=== PATIENT | female | born 1945 | race Caucasian/White ===

== ENCOUNTER 2023-05-09 08:04 | Outpatient (CLI) | payer MEDICARE, SELFPAY ==
--- NOTE | 2023-05-10 09:46 | WPDSIXMINUTE ---
Six Minute Walk Procedure Procedure Performed Pulmonary Stress Test (6 min walk) Six Minute Walk Six Minute Walk: This is a 6 minute walk test. The test was performed and interpreted in accordance with the 2014 ERS/ATS task force guidelines. Findings: The patient's resting room air oxygen saturation measured by pulse oximetry was 96% and heart rate was 73 bpm. Patient ambulated for 366 meters and oxygen saturation remained 93 to 97%. Heart rate at the end of the study was 98 bpm. The patient did not qualify for supplemental oxygen at rest or with ambulation. There are no prior studies for comparison.
== END 2023-05-09 08:05 | disposition home or self-care (01) ==
DX: J84.9 Interstitial pulmonary disease, unspecified (principal)
CPT/HCPCS: 94618

== ENCOUNTER 2023-09-07 13:30 | Outpatient (RCR) | payer MEDICARE, SELFPAY ==
[2023-05-11 11:03] VITALS: PULSE 82
== END 2023-09-07 23:59 | disposition home or self-care (01) ==
LOC: ANHCPREHAB 13:30
DX: J84.9 Interstitial pulmonary disease, unspecified (principal)
CPT/HCPCS: 94625; G0239

== ENCOUNTER 2023-09-14 13:30 | Outpatient (RCR) | payer MEDICARE, SELFPAY ==
[2023-09-09 00:02] VITALS: PULSE 82
== END 2023-09-14 15:00 | disposition home or self-care (01) ==
LOC: ANHCPREHAB 13:30
DX: J84.9 Interstitial pulmonary disease, unspecified (principal)
CPT/HCPCS: G0239

== ENCOUNTER 2023-09-17 08:09 | Outpatient (CLI) | payer MEDICARE, SELFPAY ==
--- NOTE | 2023-09-17 12:44 | WPDSIXMINUTE ---
Six Minute Walk Procedure Procedure Performed Pulmonary Stress Test (6 min walk) Six Minute Walk Six Minute Walk: This 6 minute walk test was conducted with the patient breathing ambient air. The pre-walk baseline oxyhemoglobin saturation was 97%. The patient walked 442 m with no stops during testing. During the walk the oxyhemoglobin saturation remained in the range of a 92% to 94%. Impression: No evidence of oxyhemoglobin desaturation on this test.
== END 2023-09-17 08:10 | disposition home or self-care (01) ==
LOC: ANHPFT 08:13
DX: J84.9 Interstitial pulmonary disease, unspecified (principal)
CPT/HCPCS: 94618

== ENCOUNTER 2024-07-17 12:00 | Outpatient (CLI) | payer MEDICARE, SELFPAY ==
[2024-07-17 13:16] LABS: Influenza A QL RT-PCR Negative (Negative); Influenza B QL RT-PCR Negative (Negative); RSV RNA, RT-PCR Negative (Negative); SARS-CoV-2 RNA PCR Negative (Negative)
== END 2024-07-17 12:01 | disposition home or self-care (01) ==
LOC: ANHLAB 12:03
PROVIDERS: Visit Provider Internal Medicine
DX: R05.9 Cough, unspecified (principal); Z20.822 Contact with and (suspected) exposure to COVID-19
CPT/HCPCS: 87637